=== PATIENT | female | born 1995 | race Caucasian/White ===

== ENCOUNTER 2018-10-15 15:30 | Emergency (ER) | payer OTHER ==
[2018-10-15 15:36] VITALS: BP 104/56; PULSE 68; TEMP 98.2; BMI 30.7
[2018-10-15] MEDS ORDERED: ONDANSETRON 4 MG/2 ML VIAL IVPUSH ONE (16:00)
[2018-10-15] MEDS ORDERED: SODIUM CHLORIDE 1,000 ML IV STA ×2 (16:01→18:51)
[2018-10-15] MEDS ORDERED: ACETAMINOPHEN 1000 MG/100 ML VIAL (NON FORMULARY) IVPB ONE (16:11)
[2018-10-15 16:23] LABS: BASO % 0.2 % (0-2.0); EOS % 0.3 % (0-4.5); HEMATOCRIT 43.5 % (32.4-45.2); HEMOGLOBIN 15.2 GM/dL (10.7-15.3); LYMPH % 18.8 % (8-40); MCHC 34.9 g/dl (32.0-36.0); MEAN CELL VOLUME 94.4 fl (80-96); MONO % 6.3 % (3.8-10.2); NEUT % 74.4 % (42.8-82.8); PLATELET COUNT 145 K/MM3 (134-434); RBC 4.61 M/mm3 (3.60-5.2); RDW 13.4 % (11.6-15.6); WHITE BLOOD COUNT 9.8 K/mm3 (4.0-10.0)
--- NOTE | 2018-10-15 16:40 | PDOC ---
History of Present Illness - General Chief Complaint: Pain Stated Complaint: ABD Time Seen by Provider: 10/15/18 15:53 History Source: Patient Exam Limitations: No Limitations - History of Present Illness Travel History: No Initial Comments: 10/15/18 16:33 23-year-old female with history of dysmenorrhea presents to ED with complaints of sudden onset of lower abdominal cramping associated nausea and mild dizziness. Patient states started her menses today at approximately 2 hours ago now with complaints mentioned above. Patient states normally she lays down with symptoms begin and takes Motrin but states the pain continued and the intensity was more severe. Patient has no other complaints at this time. Patient states discussed with her FAMILY DEVELOPMENT SPECIALIST for the above and discussed either OCP versus analgesics. Timing/Duration: reports: constant Quality: reports: moderate, cramping Abdominal Pain Onset Location: reports: suprapubic (mid) Pain Radiation: reports: no radiation Activities at Onset: reports: none Aggravating Factors: improves with: None Alleviating Factors: improves with: None Past History - Travel Traveled outside of the country in the last 30 days: No Close contact w/someone who was outside of country & ill: No - Past Medical History Allergies/Adverse Reactions: Allergies Allergy/AdvReac Type Severity Reaction Status Date / Time No Known Allergies Allergy Verified 10/15/18 16:14 Home Medications: Ambulatory Orders NK [No Known Home Medication] 10/15/18 Cancer: No COPD: No GI Disorders: No Hypercholesterolemia: No Liver Disease: No Psychiatric Problems: No - Suicide/Smoking/Psychosocial Hx Smoking History: Never smoked Information on smoking cessation initiated: No Hx Alcohol Use: No Drug/Substance Use Hx: No Patient Lives Alone: No Lives with/in: parents Review of Systems - Review of Systems Able to Perform ROS?: Yes Constitutional: Yes: Weakness HEENTM: No: Symptoms Reported Respiratory: No: Symptoms reported Cardiac (ROS): No: Symptoms Reported ABD/GI: Yes: Abdominal cramping : Yes: Other (heavy menstrual cramps) Musculoskeletal: No: Symptoms Reported Integumentary: No: Symptoms Reported Neurological: No: Symptoms reported *Physical Exam - Vital Signs Last Vital Signs Temp Pulse Resp BP Pulse Ox 98.2 F 68 20 104/56 L 100 10/15/18 15:32 10/15/18 15:32 10/15/18 15:32 10/15/18 15:32 10/15/18 15:32 - Physical Exam General Appearance: Yes: Nourished, Appropriately Dressed. No: Apparent Distress Neck: positive: Supple Respiratory/Chest: positive: Lungs Clear, Normal Breath Sounds. negative: Respiratory Distress, Accessory Muscle Use Cardiovascular: positive: Regular Rhythm, Regular Rate. negative: Murmur Female Pelvic Exam: positive: vaginal bleeding Gastrointestinal/Abdominal: positive: Soft, Tenderness (midsuprapubic) Integumentary: positive: Normal Color, Warm, Moist Neurologic: positive: Motor Strength 5/5 (ambulatory) Moderate Sedation - Procedure Monitoring Vital Signs: Procedure Monitoring Vital Signs Temperature 98.2 F 10/15/18 15:32 Pulse Rate 68 10/15/18 15:32 Respiratory Rate 20 10/15/18 15:32 Blood Pressure 104/56 L 10/15/18 15:32 O2 Sat by Pulse Oximetry (%) 100 10/15/18 15:32 ED Treatment Course - LABORATORY CBC & Chemistry Diagram: 10/15/18 16:07 10/15/18 16:00 - ADDITIONAL ORDERS Additional order review: 10/15/18 16:07 RBC 4.61 MCV 94.4 MCHC 34.9 RDW 13.4 MPV 10.0 Neutrophils % 74.4 Lymphocytes % 18.8 Monocytes % 6.3 Eosinophils % 0.3 Basophils % 0.2 - RADIOLOGY Radiology Studies Ordered: Category Date Time Status PELVIC / BLADDER US [US] Stat Ultrasound 10/15/18 16:07 Ordered TRANSVAGINAL ULTRASOUND US [US] Stat Ultrasound 10/15/18 16:07 Ordered - Medications Given in the ED: ED Medications Discontinued Medications Generic Name Dose Route Start Last Admin Trade Name Freq PRN Reason Stop Dose Admin Acetaminophen 1,000 mg 10/15/18 16:11 10/15/18 16:13 Ofirmev Injection - IVPB 10/15/18 16:12 1,000 mg ONCE ONE Administration Ondansetron HCl 4 mg 10/15/18 16:00 10/15/18 16:08 Zofran Injection IVPUSH 10/15/18 16:01 4 mg ONCE ONE Administration Medical Decision Making - Medical Decision Making 10/15/18 16:40 Chief complaint: Dysmenorrhea now causing worsening abdominal pain and nausea with dizziness. Patient states does experience the above but not to this extent. Patient was told to go on oral contraceptive medication by her FAMILY DEVELOPMENT SPECIALIST and she saw just 2 months ago for the same. Exam: Patient initially ambulatory but while in room patient stated she wanted to faint secondary to abdominal pain and nausea. Patient laid down IV established with antiemetics and IV Tylenol. Patient states felt better within 15 minutes. Patient is currently ambulatory and obtaining urine Plan: Labs urine ultrasound 10/15/18 16:42 Laboratory Tests 10/15/18 16:07 WBC 9.8 Hgb 15.2 Hct 43.5 Plt Count 145 10/15/18 18:05 Laboratory Tests 10/15/18 16:00 Urine Protein Negative Urine Glucose (UA) Negative Urine Ketones Trace H Urine Blood Negative Urine Nitrite Negative Urine Bilirubin Negative Urine Urobilinogen Negative Ur Leukocyte Esterase Negative Urine HCG, Qual Negative
[2018-10-15 17:01] LABS: ALBUMIN 4.2 g/dl (3.4-5.0); ALK PHOS 48 U/L (45-117); ANION GAP 7 MMOL/L (8-16); BILIRUBIN,TOTAL 0.4 mg/dL (0.2-1); BLOOD UREA NITROGEN 11 mg/dL (7-18); CALCIUM 9.1 mg/dL (8.5-10.1); CHLORIDE 106 mmol/L (98-107); CO2 25 mmol/L (21-32); CREATININE 0.7 mg/dL (0.55-1.3); GLUCOSE,RANDOM 97 mg/dL (74-106); POTASSIUM 4.1 mmol/L (3.5-5.1); SGOT/AST 18 U/L (15-37); SGPT/ALT 18 U/L (13-61); SODIUM 139 mmol/L (136-145)
[2018-10-15 17:48] LABS: URINE APPEARANCE CLOUDY; URINE BILIRUBIN NEGATIVE (<2.0 mg/dL); URINE COLOR YELLOW; URINE GLUCOSE (UA) NEGATIVE (NEGATIVE); URINE KETONE TRACE (NEGATIVE); URINE LEUK ESTERASE NEGATIVE (NEGATIVE); URINE NITRITE NEGATIVE (NEGATIVE); URINE PROTEIN NEGATIVE (NEGATIVE); URINE UROBILINOGEN NEGATIVE mg/dL (0.2-1.0)
[2018-10-15 17:56] LABS: HCG,QUALITATIVE URINE Negative
[2018-10-15] MEDS ORDERED: KETOROLAC TROMETHAMINE 30 MG/1 ML VIAL IVPUSH STA (18:05)
[2018-10-15] MEDS ORDERED: KETOROLAC TROMETHAMINE 30 MG/1 ML VIAL ONE (18:09)
--- NOTE | 2018-10-15 20:25 | PDOC ---
*Physical Exam - Vital Signs Last Vital Signs Temp Pulse Resp BP Pulse Ox 98.2 F 68 20 104/56 L 100 10/15/18 15:32 10/15/18 15:32 10/15/18 15:32 10/15/18 15:32 10/15/18 15:32 ED Treatment Course - LABORATORY CBC & Chemistry Diagram: 10/15/18 16:07 10/15/18 16:00 - ADDITIONAL ORDERS Additional order review: Laboratory Results 10/15/18 10/15/18 16:00 16:00 Sodium 139 Potassium 4.1 Chloride 106 Carbon Dioxide 25 Anion Gap 7 L BUN 11 Creatinine 0.7 Creat Clearance w eGFR > 60 Random Glucose 97 Calcium 9.1 Total Bilirubin 0.4 AST 18 ALT 18 Alkaline Phosphatase 48 Total Protein 7.0 Albumin 4.2 Urine Color Yellow Urine Appearance Cloudy Urine pH 7.0 Ur Specific Kimball 1.023 Urine Protein Negative Urine Glucose (UA) Negative Urine Ketones Trace H Urine Blood Negative Urine Nitrite Negative Urine Bilirubin Negative Urine Urobilinogen Negative Ur Leukocyte Esterase Negative Urine HCG, Qual Negative 10/15/18 16:07 RBC 4.61 MCV 94.4 MCHC 34.9 RDW 13.4 MPV 10.0 Neutrophils % 74.4 Lymphocytes % 18.8 Monocytes % 6.3 Eosinophils % 0.3 Basophils % 0.2 - Medications Given in the ED: ED Medications Discontinued Medications Generic Name Dose Route Start Last Admin Trade Name Jose G PRN Reason Stop Dose Admin Acetaminophen 1,000 mg 10/15/18 16:11 10/15/18 16:13 Ofirmev Injection - IVPB 10/15/18 16:12 1,000 mg ONCE ONE Administration Sodium Chloride 1,000 mls @ 1,000 mls/hr 10/15/18 16:01 10/15/18 16:08 Normal Saline - IV 10/15/18 17:00 1,000 mls/hr ASDIR STA Administration Ketorolac Tromethamine 30 mg 10/15/18 18:05 10/15/18 18:10 Toradol Injection - IVPUSH 10/15/18 18:06 30 mg ONCE STA Administration Ondansetron HCl 4 mg 10/15/18 16:00 10/15/18 16:08 Zofran Injection IVPUSH 10/15/18 16:01 4 mg ONCE ONE Administration Medical Decision Making - Medical Decision Making Patient signed out to me by JEFF Martinez Patient currently resting in NAD, feels no pain currently Pelvic ultrasound results: Impression: 1. 2.3 x 2.5 x 2.3 cm cyst left ovary. No evidence of right or left ovarian torsion. 2. Uterus unremarkable. Results discussed with patient Stable for discharge 10/15/18 20:24 *DC/Admit/Observation/Transfer Diagnosis at time of Disposition: Pelvic pain - Discharge Dispostion Disposition: HOME Condition at time of disposition: Stable Decision to Admit order: No - Referrals Referrals: Chino Lynne MD [Staff Physician] - 1 week - Patient Instructions Printed Discharge Instructions: DI for Pelvic Pain Additional Instructions: Thank you for choosing [facility]. It was a pleasure taking care of you. Your labs and ultrasound were normal You were noted with incidental left ovarian cyst. Return to the Emergency Department if your symptoms worsen or persist or have other concerning symptoms. - Post Discharge Activity
== END 2018-10-15 20:46 | disposition home or self-care (01) ==
LOC: JER 15:30
PROC: 3E033GC Introduction of Other Therapeutic Substance into Peripheral Vein, Percutaneous Approach (ICD-10-PCS; principal; 2018-10-15)
PROC: 3E033NZ Introduction of Analgesics, Hypnotics, Sedatives into Peripheral Vein, Percutaneous Approach (ICD-10-PCS; 2018-10-15)
PROC: 3E0333Z Introduction of Anti-inflammatory into Peripheral Vein, Percutaneous Approach (ICD-10-PCS; 2018-10-15)
DX: R10.2 Pelvic and perineal pain (principal); N83.202 Unspecified ovarian cyst, left side
CPT/HCPCS: 36415; 76830-TC; 76856-TC; 80053; 81003; 84703; 85025; 87086; 87186; 99282-25; J0131; J7030

== ENCOUNTER 2018-12-07 18:27 | Emergency (ER) | payer OTHER ==
[2018-12-07 19:18] VITALS: TEMP 98.5; BMI 30.7
--- NOTE | 2018-12-07 19:18 | PDOC ---
Rapid Medical Evaluation Time Seen by Provider: 12/07/18 19:14 Medical Evaluation: Allergies Allergy/AdvReac Type Severity Reaction Status Date / Time No Known Allergies Allergy Verified 10/15/18 16:14 12/07/18 19:14 I have performed a brief in-person evaluation of this patient The patient present with a chief complaint of: nausea and vomiting today. Also reports diarrhea. States had hibachi last night. States cannot consume water without vomiting. Pertinent physical exam findings: NAD even and unlabored breathing + bowel sounds, +generalize abdominal tenderness I have ordered the following: urine preg, labs The patient will proceed to the ED for further evaluation. Discharge Disposition - Diagnosis Abdominal pain - Referrals - Patient Instructions - Post Discharge Activity
[2018-12-07] MEDS ORDERED: LACTATED RINGERS SOLUTION 1000 ML INFUS.BAG IV ONE (21:53)
[2018-12-07] MEDS ORDERED: ONDANSETRON 4 MG/2 ML VIAL IVPUSH ONE (21:54)
--- NOTE | 2018-12-07 22:04 | PDOC ---
Attending Attestation - Resident Resident Name: Jesse Olea - ED Attending Attestation I have performed the following: I have examined & evaluated the patient, The case was reviewed & discussed with the resident, I agree w/resident's findings & plan, Exceptions are as noted - HPI HPI: 12/07/18 22:01 23 yo female dev nausea,vomiting and diarrhea today -did eat out yesterday and had shrimp habashi - Physicial Exam PE: 12/07/18 22:14 wnwd 23 yo female with NVD head ncat neck supple lungs cta b/lk cvs [id number] abd no rebound,diffuse abd discomfort,no guarding no flank tenderness skin warm and dry neuro axox3,ambulatory,no gross focal neuro deficits - Medical Decision Making 12/07/18 23:06 Patient has a benign abdominal exam, she received Zofran, IV fluids and her symptoms resolved CBC is within normal limits Chemistries show normal electrolytes, normal renal function. Glucose is 83. Urinalysis is negative. test negative Impression : gastroenteritis d/c home
[2018-12-07] MEDS ORDERED: ONDANSETRON 4 MG/2 ML VIAL ONE (22:22)
[2018-12-07 22:27] LABS: BASO % 0.3 % (0-2.0); EOS % 0.2 % (0-4.5); HEMATOCRIT 43.7 % (32.4-45.2); HEMOGLOBIN 14.8 GM/dL (10.7-15.3); LYMPH % 9.4 % (8-40); MCH 31.9 pg (25.7-33.7); MCHC 33.8 g/dl (32.0-36.0); MEAN CELL VOLUME 94.5 fl (80-96); MEAN PLT VOLUME 9.3 fl (7.5-11.1); MONO % 4.5 % (3.8-10.2); NEUT % 85.6 % (42.8-82.8); PLATELET COUNT 149 K/MM3 (134-434); RBC 4.63 M/mm3 (3.60-5.2); WHITE BLOOD COUNT 9.1 K/mm3 (4.0-10.0)
[2018-12-07 22:33] LABS: HCG,QUALITATIVE URINE Negative
--- NOTE | 2018-12-07 22:34 | PDOC ---
History of Present Illness - General Chief Complaint: Nausea/Vomiting Stated Complaint: STOMACH PAIN Time Seen by Provider: 12/07/18 19:14 History Source: Patient Exam Limitations: No Limitations - History of Present Illness Initial Comments: HPI: 23 y/o female presenting to [facility] ER complaining of abdominal pain with nausea, vomiting, and diarrhea since this morning. Pt states she woke up feeling lightheaded and weak but was able to make it to morning practice. Started to vomit during the workout. Endorses approx. 4 episodes of nonbloody and nonbilious vomit. Last episode was an hour before arrival. Endorses a few episodes of nonbloody diarrhea. Abdominal pain is diffuse and intermittent; described as sharp. Denies dysuria, chest pain, or shortness of breath. No known sick contacts. Ate Hibachi last night with friends. No one else ordered shrimp. LMP 24 November 2018. Described as normal. Start taking unknown control the Friday after this cycle. 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 Surgical Hx: - Orthopedic surgery to right elbow Past History - Past Medical History Allergies/Adverse Reactions: Allergies Allergy/AdvReac Type Severity Reaction Status Date / Time No Known Allergies Allergy Verified 12/07/18 23:07 Home Medications: Ambulatory Orders Ondansetron [Zofran Odt -] 4 mg SL TID PRN #10 od.tablet 12/07/18 Cancer: No COPD: No GI Disorders: No Hypercholesterolemia: No Liver Disease: No Psychiatric Problems: No - Suicide/Smoking/Psychosocial Hx Smoking History: Unknown if ever smoked Hx Alcohol Use: No Drug/Substance Use Hx: No Review of Systems - Review of Systems Able to Perform ROS?: Yes Comments:: In addition to that documented in the HPI above, the additional ROS was obtained : Constitutional: Endorses subjective fevers and chills. Denies syncope. Head: Denies vision changes ENMT: Denies sore throat CV: Denies chest pain Resp: Denies SOB GI: Per HPI : Denies painful urination, increased urinary frequency, hematuria, or vaginal discharge MSK: Denies recent trauma Skin: Denies new rashes Neuro: Denies new numbness or tingling or weakness Endocrine: Denies polyuria Heme: Denies bleeding or bruising *Physical Exam - Vital Signs Last Vital Signs Temp Pulse Resp BP Pulse Ox 98.5 F 73 20 110/59 L 97 12/07/18 19:14 12/07/18 19:14 12/07/18 19:14 12/07/18 19:14 12/07/18 19:14 - Physical Exam Comments: Constitutional: Well-developed, well-nourished, nontoxic adult female in no acute distress or obvious discomfort. Found semi-fowlers on hospital bed. Alert and oriented x4. Answered all questions appropriately and completely. Speech was non-labored, non-pressured. Head: Normocephalic. No obvious external signs of trauma. Eyes: Sclerae white. Conjunctiva moist and not injected. Ears: Hearing grossly intact. Nose: No nasal discharge. Throat: Oral cavity and pharynx normal. No inflammation, swelling, exudate, or lesions. Teeth and gingiva in good general condition. Neck: Supple, trachea is midline. Cardiovascular / Chest: Regular rate and regular rhythm. No murmur, rubs, clicks, or gallops. Peripheral pulses: radial pulses full. Respiratory: Breathing unlabored. Equal chest rise and fall. Clear to auscultation bilaterally. No stridor, no wheezing, no rhonchi. Gastrointestinal: abdomen is soft, non-tender, non-distended. No hepatosplenemegaly. No pulsatile masses. No overlying skin lesions or obvious signs of trauma. Neuro: Alert and oriented. Moving all four extremities spontaneously. Skin: Warm, dry, and intact. No bruising, rashes, or other lesions. Psych: Affect: appropriate. Mood: normal. ED Treatment Course - LABORATORY CBC & Chemistry Diagram: 12/07/18 22:19 12/07/18 22:19 - ADDITIONAL ORDERS Additional order review: Laboratory Results 12/07/18 22:19 Urine HCG, Qual Negative 12/07/18 22:19 RBC 4.63 MCV 94.5 MCHC 33.8 RDW 13.0 MPV 9.3 Neutrophils % 85.6 H Lymphocytes % 9.4 D Monocytes % 4.5 Eosinophils % 0.2 Basophils % 0.3 - Medications Given in the ED: ED Medications Discontinued Medications Generic Name Dose Route Start Last Admin Trade Name Freq PRN Reason Stop Dose Admin Lactated Ringer's 1,000 ml 12/07/18 21:53 12/07/18 22:28 Lactated Ringers Solution IV 12/07/18 21:54 1,000 ml ONCE ONE Administration Ondansetron HCl 4 mg 12/07/18 21:54 12/07/18 22:27 Zofran Injection IVPUSH 12/07/18 21:55 4 mg ONCE ONE Administration Medical Decision Making - Medical Decision Making *Reviewed vital signs, nursing notes, and prior visit documentation (if available). 23 y/o female presenting with diffuse, intermittent abdominal pain with N/V/D x1 day. Afebrile. Vitals unremarkable for hypotension or tachycardia. Suspect likely acute gastroenteritis. Low suspicion for hepatitis, cholecystitis, appendicitis, or lipase. No peritoneal signs. CBC unremarkable for leukocytosis or anemia. CMP unremarkable for electrolyte derangement. Isolated mild T. Bili elevation. Continue to have low suspicion for cholecystitis or biliary pathology without focal RUQ tenderness. Will encourage pt to f/u with PCP to have labs repeated as outpatient. UA unremarkable for pyuria, leukocyte esterase, or nitrites. Low suspicion for cystitis. UPreg negative. Pt reassessed and found to be more comfortable after IVFB and Zofran. Repeat abdominal exam is unchanged from initial. No peritoneal signs. Continue to suspect acute gastroenteritis. Will prescribe Zofran for continued symptom relief. *DC/Admit/Observation/Transfer Diagnosis at time of Disposition: Nausea vomiting and diarrhea Abdominal pain Qualifiers: Abdominal location: generalized Qualified Code(s): R10.84 - Generalized abdominal pain - Discharge Dispostion Disposition: HOME Condition at time of disposition: Good Decision to Admit order: No - Prescriptions Prescriptions: Ondansetron [Zofran Odt -] 4 mg SL TID PRN #10 od.tablet PRN Reason: Nausea / Vomiting - Referrals - Patient Instructions Printed Discharge Instructions: DI for Vomiting -- Adult Additional Instructions: You were seen today for nausea, vomiting, diarrhea, and diffuse abdominal pain. Your blood work was normal today, aside from a small elevation in your bilirubin level. This is a nonspecific finding. You should follow up with your primary care doctor in the next week to have it repeated. Please continue to drink fluids (water, Gatorade, etc) to stay hydrated. You can try and eat a small bland meal (crackers, etc) after you have stopped vomiting for 12 hours. I have sent a prescription for Zofran to your pharmacy. Take as directed on the package insert. Do not take more than the recommended dose. Return to the emergency room if your vomiting becomes much worse and you are no longer able to keep fluids down, if you begin to feel dehydrated, if you develop a fever, pass out, become disoriented, begin vomiting blood, have bloody diarrhea, or you feel like you need additional emergency care. You can also see your primary care doctor if your symptoms do not improve. Print Language: URDU - Post Discharge Activity Forms/Work/School Notes: Back to Work
[2018-12-07 22:39] LABS: PH,URINE 5.5 (5.0-8.0); URINE APPEARANCE Clear; URINE BILIRUBIN 1+ (NEGATIVE); URINE COLOR Yellow; URINE GLUCOSE (UA) Negative (NEGATIVE); URINE KETONE 3+ (NEGATIVE); URINE LEUK ESTERASE Negative (NEGATIVE); URINE NITRITE Negative (NEGATIVE); URINE PROTEIN 1+ (NEGATIVE); URINE UROBILINOGEN 0.2 mg/dL (0.2-1.0)
[2018-12-07 22:53] LABS: ALBUMIN 4.5 g/dl (3.4-5.0); ALK PHOS 52 U/L (45-117); ANION GAP 8 MMOL/L (8-16); BILIRUBIN,TOTAL 1.4 mg/dL (0.2-1); BLOOD UREA NITROGEN 13 mg/dL (7-18); CALCIUM 8.7 mg/dL (8.5-10.1); CHLORIDE 104 mmol/L (98-107); CO2 24 mmol/L (21-32); CREATININE 0.8 mg/dL (0.55-1.3); GLUCOSE,RANDOM 83 mg/dL (74-106); LIPASE 89 U/L (73-393); POTASSIUM 3.7 mmol/L (3.5-5.1); SGOT/AST 15 U/L (15-37); SGPT/ALT 15 U/L (13-61); SODIUM 136 mmol/L (136-145); TOT PROT 7.7 g/dl (6.4-8.2)
[2018-12-07 23:07] LABS: URINE BACTERIA 4+ /hpf (NEGATIVE)
[2018-12-07 23:34] VITALS: BP 112/60; PULSE 84
== END 2018-12-07 23:34 | disposition home or self-care (01) ==
LOC: JER 18:27
PROC: 3E033GC Introduction of Other Therapeutic Substance into Peripheral Vein, Percutaneous Approach (ICD-10-PCS; principal; 2018-12-07)
DX: K52.9 Noninfective gastroenteritis and colitis, unspecified (principal)
CPT/HCPCS: 36415; 80053; 81003; 83690; 84703; 85025; 87086; 96374; 99281-25